=== PATIENT | male | born 1940 | race Caucasian/White ===

== ENCOUNTER 2023-04-11 15:49 | Inpatient (IN) | payer MEDICARE, BC ==
[~2023-04-11 15:49] MED LIST: Iopamidol 370 76% 100 ML VIAL ONE
[2023-04-11 17:52] LABS: #Basophils 0.1 10x3/uL (0.0-0.2); #Monocytes 0.7 10x3/uL (0.0-1.1); #Neutrophils 4.9 10x3/uL (1.5-8.4); %Basophils 1.1 % (0.0-2.0); %Eosinophils 0.7 % (0.0-6.0); %Lymphocytes 7.7 % (18.0-47.0); %Monocytes 10.9 % (0.0-10.0); %Neutrophils 78.9 % (40.0-75.0); Hematocrit 28.2 % (38.8-50.0); Hemoglobin 8.3 g/dL (13.5-17.5); Mean Corpuscular HGB CONC 29.4 g/dL (32.0-36.0); Mean Corpuscular Hemoglobin 32.7 pg (27.0-33.0); Mean Platelet Volume 9.7 fl (7.4-10.4); Platelet Count 256 10x3/uL (150-450); RBC Distribution Width 17.8 % (11.5-14.5); Red Blood Cell (RBC) Count 2.54 10x6/uL (4.32-5.72); White Blood Cell (WBC) Count 6.1 10x3/uL (3.5-10.5)
[2023-04-11 18:04] LABS: ALT (SGPT) 193 U/L (8-55); AST (SGOT) 147 U/L (5-34); Albumin 2.8 g/dL (3.4-4.8); Alkaline Phosphatase 151 U/L (40-110); Anion Gap 10 mmol/L (10-20); BUN (Urea Nitrogen) 12 mg/dL (8.4-25.7); Bilirubin, Total 0.2 mg/dL (0.2-1.2); Calc. Creatinine Clearance 0 mL/min (70-130); Calcium 8.3 mg/dL (7.8-10.44); Carbon Dioxide 26 mmol/L (23-31); Chloride 108 mmol/L (98-107); Estimated GFR 90; Globulin 1.8 g/dL (2.4-3.5); Glucose 102 mg/dL (83-110); Lipase 26 U/L (8-78); Potassium 4.1 mmol/L (3.5-5.1); Protein, Total 4.6 g/dL (5.8-8.1); Sodium 140 mmol/L (136-145)
[2023-04-11 18:10] LABS: Troponin I 0.012 ng/mL (< 0.028)
[2023-04-11 18:38] LABS: Bilirubin Neg (Negative); Blood, Urine 10 (Negative); Clarity Slightly Cloudy (Clear); Glucose, Urine (Dipstick) Normal (Negative); Ketone, Urine Negative (Negative); Leukocyte Negative (Negative); Nitrite Negative (Negative); Protein, Urine (Dipstick) 15 mg/dl (Neg-Trace); Specific Gravity, Urine 1.025 (1.005-1.030); Urobilinogen Normal mg/dL (Less than 2)
[2023-04-11 19:04] LABS: CAUTI Indications for Culture Pelvic or flank pain; RBC/HPF 0-3 HPF (0-3); Squamous Epithelial 0-3 HPF (0-3); WBC/HPF 0-3 HPF (0-3)
[2023-04-11 19:05] LABS: Bacteria/HPF None Seen HPF (None Seen)
[2023-04-11 19:06] LABS: Urine Culture Reflex No No
[2023-04-11] MEDS ORDERED: Ondansetron ODT 4 MG TAB PO PRN (19:57)
[2023-04-11] MEDS ORDERED: Acetaminophen 650 MG Suppository PR PRN (19:57)
[2023-04-11] MEDS ORDERED: Ondansetron PF 4 MG/2 ML Vial IVP PRN (19:57)
[2023-04-11] MEDS ORDERED: Acetaminophen 325 MG TAB PO PRN (19:57)
[2023-04-11] MEDS ORDERED: Furosemide 40 MG (4 mL) VIAL ONE (20:20)
[2023-04-11 20:49] LABS: Anion Gap 7 mmol/L (10-20); BUN (Urea Nitrogen) 11 mg/dL (8.4-25.7); Calc. Creatinine Clearance 0 mL/min (70-130); Calcium 8.2 mg/dL (7.8-10.44); Carbon Dioxide 27 mmol/L (23-31); Chloride 109 mmol/L (98-107); Estimated GFR 92; Glucose 97 mg/dL (83-110); Potassium 4.2 mmol/L (3.5-5.1); Sodium 139 mmol/L (136-145)
[2023-04-11 21:12] LABS: Thyroid Stimulating Hormone 2.2313 uIU/mL (0.35-4.94)
[2023-04-11] MEDS ORDERED: Famotidine 20 MG TAB ONE (22:24)
[2023-04-11] MEDS ORDERED: Enoxaparin 40 MG (0.4 mL) SYRINGE ONE (22:55)
[2023-04-11] MEDS ORDERED: Enoxaparin 40 MG (0.4 mL) SYRINGE SC SCH (23:00)
[2023-04-11] MEDS ORDERED: Albumin 25% 25 GM (100 mL) BOT IVPB SCH (23:00)
[2023-04-11] MEDS ORDERED: HYDROcodone/Acetaminophen 10/325 mg Tablet PO PRN (23:25)
[2023-04-11 23:58] LABS: Acetaminophen Less than 10 mcg/mL (10.0-30.0)
[2023-04-12 01:09] LABS: Hep C IgG Ab Non-Reactive S/CO (NonReactive); Hep C Index 0.09 S/CO (0-0.79)
[2023-04-12 04:17] LABS: #Eosinphils 0.1 10x3/uL (0.0-0.5); #Monocytes 0.5 10x3/uL (0.0-1.1); #Neutrophils 2.5 10x3/uL (1.5-8.4); %Basophils 1.2 % (0.0-2.0); %Eosinophils 1.7 % (0.0-6.0); %Lymphocytes 10.1 % (18.0-47.0); %Monocytes 14.2 % (0.0-10.0); %Neutrophils 72.5 % (40.0-75.0); Hematocrit 23.3 % (38.8-50.0); Hemoglobin 6.7 g/dL (13.5-17.5); Mean Corpuscular HGB CONC 28.8 g/dL (32.0-36.0); Mean Corpuscular Hemoglobin 32.1 pg (27.0-33.0); Mean Corpuscular Volume 111.5 fl (81.2-95.1); Mean Platelet Volume 10.1 fl (7.4-10.4); Platelet Count 206 10x3/uL (150-450); RBC Distribution Width 18.3 % (11.5-14.5); Red Blood Cell (RBC) Count 2.09 10x6/uL (4.32-5.72); White Blood Cell (WBC) Count 3.5 10x3/uL (3.5-10.5)
[2023-04-12 04:20] LABS: INR-International Normal Ratio 1.2; Prothrombin Time 12.4 sec (9.5-12.1)
[2023-04-12 04:28] LABS: ALT (SGPT) 122 U/L (8-55); AST (SGOT) 84 U/L (5-34); Albumin 2.7 g/dL (3.4-4.8); Alkaline Phosphatase 108 U/L (40-110); Anion Gap 10 mmol/L (10-20); BUN (Urea Nitrogen) 11 mg/dL (8.4-25.7); Bilirubin, Direct 0.2 mg/dL (0.1-0.3); Bilirubin, Total 0.3 mg/dL (0.2-1.2); Calc. Creatinine Clearance 0 mL/min (70-130); Calcium 8.1 mg/dL (7.8-10.44); Carbon Dioxide 27 mmol/L (23-31); Chloride 108 mmol/L (98-107); Estimated GFR 89; Globulin 1.4 g/dL (2.4-3.5); Glucose 95 mg/dL (83-110); Potassium 3.6 mmol/L (3.5-5.1); Protein, Total 4.1 g/dL (5.8-8.1); Sodium 141 mmol/L (136-145)
[2023-04-12] MEDS: Furosemide 20 MG (2 mL) VIAL SLOW IVP SCH (06:15)
[2023-04-12 07:08] LABS: Hypochromia MODERATE=16-30 cells (100X) (0-5/hpf)
[2023-04-12 07:09] LABS: Anisocytosis MODERATE=16-30 cells (100X) (0-5/hpf); Macrocytosis MODERATE=16-30 cells (100X) (0-5/hpf); Microcytosis SLIGHT = 6-15 cells (100X) (0-5/hpf); Polychromasia SLIGHT = 2-3 cells (100X) (0-2/hpf); Schistocytes SLIGHT = 2-5 cells (100X) (0-1/hpf)
[2023-04-12] MEDS ORDERED: Acetaminophen 325 MG TAB PO PRN (07:47)
[2023-04-12 08:25] LABS: Iron 307 ug/dL (65-175); Iron Binding Capacity, Total 174 mcg/dL (261-462); Magnesium 1.8 mg/dL (1.6-2.6)
[2023-04-12 08:27] LABS: Phosphorus 1.8 mg/dL (2.3-4.7)
[2023-04-12] MEDS ORDERED: Magnesium 2 GM/50 ML(in water) 2 GM in Premix 1 BAG IVPB SCH (08:30)
[2023-04-12] MEDS ORDERED: Famotidine 20 MG TAB PO SCH (09:00)
[2023-04-12] MEDS ORDERED: Aspirin 81 mg Enteric Coated Tablet PO SCH (09:00)
[2023-04-12] MEDS ORDERED: Enoxaparin 40 MG (0.4 mL) SYRINGE SC SCH (09:00)
[2023-04-12] MEDS ORDERED: Potassium Phosphate 30 MMOL in Sodium Chloride 0.9% 500 ML IVPB SCH (10:00)
[2023-04-12 10:21] VITALS: BMI 20.8
[2023-04-12] MEDS: Albumin 25% 25 GM (100 mL) BOT IVPB SCH ×2 (10:24→13:14)
[2023-04-12] MEDS: Folic Acid 1 MG TAB PO SCH (10:27)
[2023-04-12] MEDS ORDERED: Polyethylene Glycol 3350 17 GM Packet PO PRN (13:32)
[2023-04-12] MEDS ORDERED: HYDROcodone/Acetaminophen 5/325 mg Tablet PO PRN (13:32)
[2023-04-12] MEDS ORDERED: Folic Acid 1 MG TAB PO SCH (21:00)
[2023-04-12] MEDS ORDERED: Ammonium Lactate 12% Lotion 225 GM BOT TOP SCH (21:00)
[2023-04-12] MEDS ORDERED: Cyanocobalamin (Vitamin B-12) 1,000 MCG TAB PO SCH (21:00)
[2023-04-12] MEDS: Senokot S 8.6-50 MG TAB PO SCH (22:04)
[2023-04-12 23:49] LABS: Creatinine, Urine 135.06 mg/dL (63-166)
[2023-04-13] MEDS: Furosemide 20 MG (2 mL) VIAL SLOW IVP SCH (06:33)
[2023-04-13 06:50] LABS: #Basophils 0.1 10x3/uL (0.0-0.2); #Eosinphils 0.1 10x3/uL (0.0-0.5); #Monocytes 0.6 10x3/uL (0.0-1.1); #Neutrophils 4.9 10x3/uL (1.5-8.4); %Basophils 0.8 % (0.0-2.0); %Eosinophils 1.5 % (0.0-6.0); %Lymphocytes 5.9 % (18.0-47.0); %Monocytes 10.5 % (0.0-10.0); %Neutrophils 80.5 % (40.0-75.0); Hematocrit 29.9 % (38.8-50.0); Hemoglobin 9.3 g/dL (13.5-17.5); Mean Corpuscular HGB CONC 31.1 g/dL (32.0-36.0); Mean Corpuscular Hemoglobin 32.6 pg (27.0-33.0); Mean Corpuscular Volume 104.9 fl (81.2-95.1); Mean Platelet Volume 9.6 fl (7.4-10.4); Platelet Count 198 10x3/uL (150-450); RBC Distribution Width 21.5 % (11.5-14.5); Red Blood Cell (RBC) Count 2.85 10x6/uL (4.32-5.72); White Blood Cell (WBC) Count 6.1 10x3/uL (3.5-10.5)
[2023-04-13 06:58] LABS: INR-International Normal Ratio 1.1; Prothrombin Time 11.7 sec (9.5-12.1)
[2023-04-13 07:06] LABS: ALT (SGPT) 96 U/L (8-55); AST (SGOT) 61 U/L (5-34); Albumin 2.6 g/dL (3.4-4.8); Alkaline Phosphatase 128 U/L (40-110); Anion Gap 11 mmol/L (10-20); BUN (Urea Nitrogen) 11 mg/dL (8.4-25.7); Bilirubin, Total 0.6 mg/dL (0.2-1.2); Calc. Creatinine Clearance 55 mL/min (70-130); Calcium 7.9 mg/dL (7.8-10.44); Carbon Dioxide 25 mmol/L (23-31); Chloride 110 mmol/L (98-107); Estimated GFR 90; Globulin 1.7 g/dL (2.4-3.5); Glucose 92 mg/dL (83-110); Magnesium 1.9 mg/dL (1.6-2.6); Potassium 3.9 mmol/L (3.5-5.1); Protein, Total 4.3 g/dL (5.8-8.1); Sodium 142 mmol/L (136-145)
[2023-04-13 08:13] LABS: Hep B Surface AG-Rflx Sendout Negative (Negative); Hepatitis B Core Total Negative (Negative); Hepatitis B Surface AB-Sendout Non Reactive (.)
[2023-04-13] MEDS ORDERED: Magnesium 2 GM/50 ML(in water) 2 GM in Premix 1 BAG IVPB SCH (09:00)
[2023-04-13] MEDS: Folic Acid 1 MG TAB PO SCH (09:54)
[2023-04-13] MEDS: Senokot S 8.6-50 MG TAB PO SCH (09:54)
[2023-04-13 12:24] VITALS: BP 136/66; TEMP 98.1
[2023-04-14] MEDS ORDERED: Furosemide 20 MG TAB PO SCH (09:00)
== END 2023-04-13 14:00 | disposition home or self-care (01) | DRG 300 ==
LOC: CSHERS 15:49 → CSHERHOLD 20:06 → OBSVTOIN 04-12 07:38 → CSHTELE 04-12 08:42
PROVIDERS: ADMIT Family Medicine; ATTEND Internal Medicine
PROC: 30233J1 Transfusion of Nonautologous Serum Albumin into Peripheral Vein, Percutaneous Approach (ICD-10-PCS; 2023-04-11)
PROC: 30233N1 Transfusion of Nonautologous Red Blood Cells into Peripheral Vein, Percutaneous Approach (ICD-10-PCS; principal; 2023-04-12)
DX: I87.2 Venous insufficiency (chronic) (peripheral) (principal); E44.0 Moderate protein-calorie malnutrition; E87.70 Fluid overload, unspecified; I89.0 Lymphedema, not elsewhere classified; R74.01 Elevation of levels of liver transaminase levels; D50.9 Iron deficiency anemia, unspecified; I10 Essential (primary) hypertension; E78.5 Hyperlipidemia, unspecified; Z98.890 Other specified postprocedural states; Z87.891 Personal history of nicotine dependence; I25.10 Atherosclerotic heart disease of native coronary artery without angina pectoris; I25.2 Old myocardial infarction; Z95.0 Presence of cardiac pacemaker; Z88.2 Allergy status to sulfonamides; Z68.20 Body mass index [BMI] 20.0-20.9, adult
CPT/HCPCS: 36415; 36430; 71045; 74178; 76705; 80053; 80076; 80143; 81001; 82570; 82607; 82728; 83540; 83550; 83690; 83735; 83880; 84100; 84156; 84443; 84484; 85025; 85046; 85610; 86704; 86706; 86803; 86850; 86900; 86901; 87340; 93005; 93306; 93970; 96374; 80307; J1650; J1940; J2405; J3475; J7030; P9016; P9047

== ENCOUNTER 2023-05-21 10:39 | Outpatient (CLI) | payer MEDICARE, BC | END 2023-05-21 10:40 | disposition home or self-care (01) | LOC: CSHULT 10:39 | PROVIDERS: ATTEND Physician Assistant Medical | DX: R79.89 Other specified abnormal findings of blood chemistry (principal) | CPT/HCPCS: 76705 ==

== ENCOUNTER 2024-01-07 09:44 | Inpatient (IN) | payer MEDICARE, BC ==
[2024-01-07 10:27] LABS: #Basophils 0.04 10x3/uL (0.0-0.2); #Eosinphils 0.25 10x3/uL (0.0-0.5); #Monocytes 0.85 10x3/uL (0.0-1.1); %Basophils 0.6 % (0.0-2.0); %Lymphocytes 6.7 % (18.0-47.0); %Monocytes 13.5 % (0.0-10.0); %Neutrophils 74.6 % (40.0-75.0); Hematocrit 24.2 % (38.8-50.0); Hemoglobin 7.2 g/dL (13.5-17.5); Mean Corpuscular HGB CONC 29.8 g/dL (32.0-36.0); Mean Corpuscular Hemoglobin 29.4 pg (27.0-33.0); Mean Corpuscular Volume 98.8 fL (81.2-95.1); Mean Platelet Volume 10.5 fL (7.4-10.4); Platelet Count 314 10x3/uL (150-450); RBC Distribution Width 20.2 % (11.5-14.5); Red Blood Cell (RBC) Count 2.45 10x6/uL (4.32-5.72); White Blood Cell (WBC) Count 6.3 10x3/uL (3.5-10.5)
[2024-01-07 10:47] LABS: ALT (SGPT) 14 U/L (8-55); AST (SGOT) 35 U/L (5-34); Alkaline Phosphatase 80 U/L (40-110); Anion Gap 10 mmol/L (10-20); BUN (Urea Nitrogen) 13 mg/dL (8.4-25.7); Bilirubin, Total 0.3 mg/dL (0.2-1.2); Calc. Creatinine Clearance 0 mL/min (70-130); Calcium 7.9 mg/dL (7.8-10.44); Carbon Dioxide 29 mmol/L (23-31); Chloride 105 mmol/L (98-107); Estimated GFR 78; Globulin 3.4 g/dL (2.4-3.5); Glucose 109 mg/dL (83-110); Potassium 3.9 mmol/L (3.5-5.1); Protein, Total 5.4 g/dL (5.8-8.1); Sodium 140 mmol/L (136-145)
[2024-01-07 10:55] LABS: Troponin I Less than 0.010 ng/mL (< 0.028)
[2024-01-07] MEDS ORDERED: Furosemide 40 MG (4 mL) VIAL ONE (13:04)
[2024-01-07] MEDS ORDERED: Ondansetron PF 4 MG/2 ML Vial IVP PRN (15:34)
[2024-01-07] MEDS ORDERED: Acetaminophen 325 MG TAB PO PRN (15:34)
[2024-01-07] MEDS ORDERED: Senokot S 8.6-50 MG TAB PO PRN (15:34)
[2024-01-07] MEDS ORDERED: Calcium Carbonate 500 MG ChewTAB PO PRN (15:34)
[2024-01-07 15:47] LABS: Troponin I Less than 0.010 ng/mL (< 0.028)
[2024-01-07] MEDS ORDERED: Ipratropium/Albuterol 3 ML NEB EZPAP PRN (16:12)
[2024-01-07] MEDS: Furosemide 40 MG (4 mL) VIAL SLOW IVP SCH (18:26)
[2024-01-07] MEDS: Albumin 25% 25 GM (100 mL) BOT IVPB SCH (18:27)
[2024-01-07] MEDS: Rosuvastatin 20 MG TAB PO SCH (21:16)
[2024-01-08 04:03] LABS: #Basophils 0.03 10x3/uL (0.0-0.2); #Eosinphils 0.36 10x3/uL (0.0-0.5); #Monocytes 0.76 10x3/uL (0.0-1.1); #Neutrophils 3.97 10x3/uL (1.5-8.4); %Basophils 0.5 % (0.0-2.0); %Eosinophils 6.6 % (0.0-6.0); %Monocytes 13.9 % (0.0-10.0); %Neutrophils 72.5 % (40.0-75.0); Hemoglobin 6.5 g/dL (13.5-17.5); Mean Corpuscular HGB CONC 29.5 g/dL (32.0-36.0); Mean Corpuscular Hemoglobin 29.4 pg (27.0-33.0); Mean Corpuscular Volume 99.5 fL (81.2-95.1); Mean Platelet Volume 10.6 fL (7.4-10.4); Platelet Count 267 10x3/uL (150-450); RBC Distribution Width 20.7 % (11.5-14.5); Red Blood Cell (RBC) Count 2.21 10x6/uL (4.32-5.72); White Blood Cell (WBC) Count 5.5 10x3/uL (3.5-10.5)
[2024-01-08 04:22] LABS: ALT (SGPT) 16 U/L (8-55); AST (SGOT) 33 U/L (5-34); Albumin 2.3 g/dL (3.4-4.8); Alkaline Phosphatase 76 U/L (40-110); Anion Gap 11 mmol/L (10-20); BUN (Urea Nitrogen) 13 mg/dL (8.4-25.7); Bilirubin, Total 0.4 mg/dL (0.2-1.2); Calc. Creatinine Clearance 42 mL/min (70-130); Calcium 7.9 mg/dL (7.8-10.44); Carbon Dioxide 32 mmol/L (23-31); Chloride 102 mmol/L (98-107); Estimated GFR 78; Globulin 3.2 g/dL (2.4-3.5); Glucose 89 mg/dL (83-110); Magnesium 1.8 mg/dL (1.6-2.6); Potassium 3.4 mmol/L (3.5-5.1); Protein, Total 5.5 g/dL (5.8-8.1); Sodium 142 mmol/L (136-145)
[2024-01-08 05:12] VITALS: BMI 19.2
[2024-01-08] MEDS: Furosemide 40 MG (4 mL) VIAL SLOW IVP SCH (06:42)
[2024-01-08] MEDS: Albumin 25% 25 GM (100 mL) BOT IVPB SCH (06:42)
[2024-01-08] MEDS: Aspirin 81 mg Enteric Coated Tablet PO SCH (08:45)
[2024-01-08] MEDS ORDERED: Non-Formulary Medication 1 EACH (Glucosamine Hcl [Glucosamine Hcl] 1,500 MG Tablet) PO SCH (09:00)
[2024-01-08] MEDS ORDERED: Electrolyte Replacement Protocol 1 EACH FS SCH (09:45)
[2024-01-08] MEDS: Potassium Chloride 20 MEQ TAB PO SCH (09:48)
[2024-01-08] MEDS: Magnesium 2 GM/50 ML(in water) 2 GM in Premix 1 BAG IVPB SCH (11:58)
[2024-01-08 12:42] LABS: Iron 28 ug/dL (65-175); Iron Binding Capacity, Total 141 mcg/dL (261-462)
[2024-01-08 13:00] LABS: Ferritin 650.42 ng/mL (22-322)
[2024-01-08] MEDS: Sodium Ferric Gluconate 125 MG in Sodium Chloride 0.9% 100 ML IVPB SCH (16:42)
[2024-01-09 04:06] LABS: #Basophils 0.04 10x3/uL (0.0-0.2); #Eosinphils 0.39 10x3/uL (0.0-0.5); #Monocytes 0.99 10x3/uL (0.0-1.1); #Neutrophils 4.15 10x3/uL (1.5-8.4); %Basophils 0.7 % (0.0-2.0); %Eosinophils 6.5 % (0.0-6.0); %Lymphocytes 6.2 % (18.0-47.0); %Monocytes 16.6 % (0.0-10.0); %Neutrophils 69.7 % (40.0-75.0); Hematocrit 26.9 % (38.8-50.0); Hemoglobin 8.2 g/dL (13.5-17.5); Mean Corpuscular HGB CONC 30.5 g/dL (32.0-36.0); Mean Corpuscular Hemoglobin 30.1 pg (27.0-33.0); Mean Corpuscular Volume 98.9 fL (81.2-95.1); Mean Platelet Volume 10.5 fL (7.4-10.4); Platelet Count 238 10x3/uL (150-450); RBC Distribution Width 20.3 % (11.5-14.5); Red Blood Cell (RBC) Count 2.72 10x6/uL (4.32-5.72)
[2024-01-09 04:15] LABS: Anion Gap 10 mmol/L (10-20); BUN (Urea Nitrogen) 12 mg/dL (8.4-25.7); Calc. Creatinine Clearance 38 mL/min (70-130); Calcium 7.9 mg/dL (7.8-10.44); Carbon Dioxide 33 mmol/L (23-31); Chloride 102 mmol/L (98-107); Estimated GFR 75; Glucose 90 mg/dL (83-110); Magnesium 2.3 mg/dL (1.6-2.6); Phosphorus 1.9 mg/dL (2.3-4.7); Potassium 3.6 mmol/L (3.5-5.1); Sodium 141 mmol/L (136-145)
[2024-01-09 04:34] LABS: Free T4 (Free Thyroxine) 0.85 ng/dL (0.70-1.48)
[2024-01-09] MEDS ORDERED: Megestrol Acetate 800 MG/20 ML UDCUP PO SCH (09:00)
[2024-01-09] MEDS: Megestrol Acetate 400 MG/10 ML UDCUP PO SCH (09:21)
[2024-01-09] MEDS: PHOS-NAK 1 PKT PACK PO SCH (09:22)
[2024-01-09] MEDS: Ferrous Sulfate 325 MG TAB PO SCH (09:23)
[2024-01-09 16:46] VITALS: BP 121/64; TEMP 97.4
[2024-01-10] MEDS ORDERED: Furosemide 40 MG TAB PO SCH (07:30)
== END 2024-01-09 17:30 | DRG 291 ==
LOC: CSHERS 09:44 → SUATTDRO 09:44 → CSHTELE 15:40 → OBSVTOIN 16:00
PROVIDERS: ADMIT Internal Medicine; ATTEND Family Medicine
PROC: 30233N1 Transfusion of Nonautologous Red Blood Cells into Peripheral Vein, Percutaneous Approach (ICD-10-PCS; principal; 2024-01-08)
PROC: 30233J1 Transfusion of Nonautologous Serum Albumin into Peripheral Vein, Percutaneous Approach (ICD-10-PCS; 2024-01-08)
DX: I13.0 Hypertensive heart and chronic kidney disease with heart failure and stage 1 through stage 4 chronic kidney disease, or unspecified chronic kidney disease (principal); I50.33 Acute on chronic diastolic (congestive) heart failure; J96.01 Acute respiratory failure with hypoxia; E44.0 Moderate protein-calorie malnutrition; R64 Cachexia; Z68.1 Body mass index [BMI] 19.9 or less, adult; D64.9 Anemia, unspecified; E78.5 Hyperlipidemia, unspecified; I25.10 Atherosclerotic heart disease of native coronary artery without angina pectoris; M41.9 Scoliosis, unspecified; Z66 Do not resuscitate; N18.9 Chronic kidney disease, unspecified; Z95.0 Presence of cardiac pacemaker; Z79.82 Long term (current) use of aspirin; Z79.899 Other long term (current) drug therapy
CPT/HCPCS: 36415; 36416; 36430; 71045; 80048; 80053; 82274; 82607; 82728; 83540; 83550; 83605; 83735; 83880; 84100; 84439; 84443; 84481; 84484; 85025; 85046; 86850; 86870; 86900; 86901; 86922; 93005; 94760; 94762; 96374; J1940; J2916; J3475; P9016; P9047

== ENCOUNTER 2024-03-30 12:03 | Emergency (ER) | payer MEDICARE, BC ==
[2024-03-30] MEDS ORDERED: Ondansetron PF 4 MG/2 ML Vial ONE (13:14)
[2024-03-30] MEDS ORDERED: Morphine 4 MG/ML VIAL ONE ×2 (13:14→18:24)
[2024-03-30 13:42] LABS: #Basophils 0.04 10x3/uL (0.0-0.2); #Eosinophils 0.02 10x3/uL (0.0-0.5); #Monocytes 0.95 10x3/uL (0.0-1.1); #Neutrophils 5.61 10x3/uL (1.5-8.4); %Basophils 0.6 % (0.0-2.0); %Eosinophils 0.3 % (0.0-6.0); %Lymphocytes 5.1 % (18.0-47.0); %Monocytes 13.6 % (0.0-10.0); Hemoglobin 7.4 g/dL (13.5-17.5); Mean Corpuscular HGB CONC 29.6 g/dL (32.0-36.0); Mean Platelet Volume 9.9 fL (7.4-10.4); Platelet Count 315 10x3/uL (150-450); RBC Distribution Width 17.4 % (11.5-14.5); Red Blood Cell (RBC) Count 2.55 10x6/uL (4.32-5.72)
[2024-03-30 13:45] LABS: INR-International Normal Ratio 1.1; PTT 26.1 sec (22.0-33.0); Prothrombin Time 12.1 sec (9.5-12.1)
[2024-03-30 13:47] LABS: ALT (SGPT) 25 U/L (8-55); AST (SGOT) 34 U/L (5-34); Albumin 1.6 g/dL (3.4-4.8); Alkaline Phosphatase 91 U/L (40-110); Anion Gap 9 mmol/L (10-20); BUN (Urea Nitrogen) 16 mg/dL (8.4-25.7); Bilirubin, Total 0.3 mg/dL (0.2-1.2); Calc. Creatinine Clearance 0 mL/min (70-130); Calcium 7.7 mg/dL (7.8-10.44); Carbon Dioxide 27 mmol/L (23-31); Chloride 107 mmol/L (98-107); Estimated GFR 88; Globulin 3.6 g/dL (2.4-3.5); Glucose 97 mg/dL (83-110); Potassium 4.8 mmol/L (3.5-5.1); Protein, Total 5.2 g/dL (5.8-8.1); Sodium 138 mmol/L (136-145)
[2024-03-30 13:53] LABS: Troponin I Less than 0.010 ng/mL (< 0.028)
[2024-03-30] MEDS ORDERED: Pantoprazole 40 MG VIAL ONE (14:05)
[2024-03-30] MEDS ORDERED: Furosemide 40 MG (4 mL) VIAL ONE (14:05)
== END 2024-03-30 18:40 | disposition short-term general hospital (02) ==
LOC: CSHERS 12:03
DX: S72.002A Fracture of unspecified part of neck of left femur, initial encounter for closed fracture (principal); D50.0 Iron deficiency anemia secondary to blood loss (chronic); I11.0 Hypertensive heart disease with heart failure; I50.9 Heart failure, unspecified; X58.XXXA Exposure to other specified factors, initial encounter
CPT/HCPCS: 71045; 72170; 80053; 83880; 84484; 85025; 85610; 85730; 86850; 86870; 86900; 86901; 93005; 93010; 96374; 96375; 96376; J1940; J2272; J2405; J2470

== ENCOUNTER 2024-12-22 10:00 | Inpatient (IN) | payer MEDICARE, BC ==
[2024-12-22 11:14] LABS: #Basophils 0.03 10x3/uL (0.0-0.2); #Eosinophils Less than 0.03 10x3/uL (0.0-0.5); #Monocytes 0.65 10x3/uL (0.0-1.1); #Neutrophils 4.14 10x3/uL (1.5-8.4); %Basophils 0.6 % (0.0-2.0); %Eosinophils 0.4 % (0.0-6.0); %Lymphocytes 7.2 % (18.0-47.0); %Monocytes 12.4 % (0.0-10.0); %Neutrophils 78.8 % (40.0-75.0); Hematocrit 27.3 % (38.8-50.0); Hemoglobin 7.9 g/dL (13.5-17.5); Mean Corpuscular Hemoglobin 31.7 pg (27.0-33.0); Mean Corpuscular Volume 109.6 fL (81.2-95.1); Platelet Count 284 10x3/uL (150-450); Red Blood Cell (RBC) Count 2.49 10x6/uL (4.32-5.72); White Blood Cell (WBC) Count 5.25 10x3/uL (3.5-10.5)
[2024-12-22 11:26] LABS: ALT (SGPT) 32 U/L (Less than 45); AST (SGOT) 29 U/L (11-34); Albumin 1.5 g/dL (3.1-4.5); Alkaline Phosphatase 150 U/L (40-110); Anion Gap 5 mmol/L (10-20); BUN (Urea Nitrogen) 17 mg/dL (8.4-25.7); Bilirubin, Total 0.4 mg/dL (0.3-1.2); Calc. Creatinine Clearance 0 mL/min (70-130); Carbon Dioxide 31 mmol/L (23-31); Chloride 107 mmol/L (98-107); Globulin 3.5 g/dL (2.4-3.5); Glucose 91 mg/dL (83-110); Potassium 4.1 mmol/L (3.5-5.1); Sodium 139 mmol/L (136-145)
[2024-12-22 11:30] LABS: Troponin I 0.011 ng/mL (< 0.028)
[2024-12-22 11:49] LABS: Calcium 6.9 mg/dL (7.8-10.44)
[2024-12-22] MEDS ORDERED: Calcium Gluc 4.6 MEQ/10 ML (100 MG/ML) ONE (12:15)
[2024-12-22] MEDS ORDERED: Ondansetron PF 4 MG/2 ML Vial IVP PRN (15:23)
[2024-12-22] MEDS ORDERED: Acetaminophen 325 MG TAB PO PRN (15:23)
[2024-12-22] MEDS ORDERED: Electrolyte Replacement Protocol 1 EACH FS SCH (15:30)
[2024-12-22 16:48] LABS: Magnesium 1.6 mg/dL (1.6-2.6)
[2024-12-22] MEDS: PHOS-NAK 1 PKT PACK PO SCH (17:18)
[2024-12-22] MEDS: Albumin 25% 25 GM (100 mL) BOT IVPB SCH (17:18)
[2024-12-22] MEDS: Magnesium 2 GM/50 ML(in water) 2 GM in Premix 1 BAG IVPB SCH (17:52)
[2024-12-22] MEDS: Furosemide 40 MG (4 mL) VIAL SLOW IVP SCH (18:33)
[2024-12-22] MEDS: Cholecalciferol 1,000 UNITS (25 MCG) TAB PO SCH (19:50)
[2024-12-22] MEDS: Rosuvastatin 20 MG TAB PO SCH (19:50)
[2024-12-23 05:58] LABS: ALT (SGPT) 22 U/L (Less than 45); AST (SGOT) 27 U/L (11-34); Albumin 2.5 g/dL (3.1-4.5); Alkaline Phosphatase 112 U/L (40-110); Anion Gap 7 mmol/L (10-20); BUN (Urea Nitrogen) 19 mg/dL (8.4-25.7); Bilirubin, Total 0.5 mg/dL (0.3-1.2); Calc. Creatinine Clearance 45 mL/min (70-130); Calcium 7.5 mg/dL (7.8-10.44); Carbon Dioxide 33 mmol/L (23-31); Chloride 105 mmol/L (98-107); Globulin 2.7 g/dL (2.4-3.5); Glucose 89 mg/dL (83-110); Magnesium 2.1 mg/dL (1.6-2.6); Potassium 3.7 mmol/L (3.5-5.1); Sodium 141 mmol/L (136-145)
[2024-12-23 06:16] LABS: Hematocrit 23.2 % (38.8-50.0); Hemoglobin 6.7 g/dL (13.5-17.5); Mean Corpuscular Hemoglobin 31.6 pg (27.0-33.0); Mean Corpuscular Volume 109.4 fL (81.2-95.1); Platelet Count 251 10x3/uL (150-450); Red Blood Cell (RBC) Count 2.12 10x6/uL (4.32-5.72); White Blood Cell (WBC) Count 5.72 10x3/uL (3.5-10.5)
[2024-12-23 07:12] LABS: Anisocytosis MODERATE=16-30 cells (100X) (0-5/hpf); Macrocytosis MODERATE=16-30 cells (100X) (0-5/hpf); Microcytosis SLIGHT = 6-15 cells (100X) (0-5/hpf); Ovalocytes SLIGHT = 2-5 cells (100X) (0-1/hpf); Poikilocytosis SLIGHT = 6-15 cells (100X) (0-5/hpf); Polychromasia SLIGHT = 2-3 cells (100X) (0-2/hpf); Spherocytes SLIGHT = 1-5 cells (100X) (None Seen)
[2024-12-23 07:13] LABS: Platelet Adequacy Comment Appears Adequate
[2024-12-23 07:14] LABS: #Basophils Less than 0.03 10x3/uL (0.0-0.2); #Eosinophils 0.08 10x3/uL (0.0-0.5); #Monocytes 0.20 10x3/uL (0.0-1.1); #Neutrophils 5.21 10x3/uL (1.5-8.4); %Basophils 0.2 % (0.0-2.0); %Eosinophils 1.4 % (0.0-6.0); %Lymphocytes 3.3 % (18.0-47.0); %Monocytes 3.5 % (0.0-10.0); %Neutrophils 91.1 % (40.0-75.0)
[2024-12-23 08:03] LABS: Hematocrit 22.9 % (38.8-50.0); Hemoglobin 6.7 g/dL (13.5-17.5)
[2024-12-23] MEDS: Furosemide 40 MG (4 mL) VIAL ONE (08:37)
[2024-12-23] MEDS: PHOS-NAK 1 PKT PACK PO SCH (09:02)
[2024-12-23] MEDS: Cyanocobalamin (Vitamin B-12) 1,000 MCG TAB PO SCH (09:02)
[2024-12-23] MEDS: Metoprolol Succinate XL 25 MG ER.TAB PO SCH (09:02)
[2024-12-23] MEDS: Aspirin 81 mg Enteric Coated Tablet PO SCH (09:02)
[2024-12-23] MEDS: Ferrous Sulfate 325 MG TAB PO SCH (09:02)
[2024-12-23] MEDS: Furosemide 40 MG (4 mL) VIAL SLOW IVP SCH (09:03)
[2024-12-23 09:24] LABS: ALV-art Gradient 153.950 mmHg (0-20); Actual Bicarbonate (HCO3a) 28.7 mEq/L (22-28); Analyzer IN Cardio CS ICU; Base Excess (BEa) 5.6 mEq/L (-2.0 to +3.0); CO2 Tension 35.4 mmHg (35.0-45.0); Calcium, Ionized (arterial) 1.05 mmol/L (1.12-1.30); Hematocrit-ABG 22 % (42.0-52.0); Hemoglobin (Hb) 7.4 g/dL (14.0-18.0); O2 Tension (PaO2), arterial 87.0 mmHg (> 60.0); Potassium - ABG Lab 3.58 mmol/L (3.70-5.30); Puncture Site Right Radial artery; pH, Arterial 7.527 (7.35-7.45)
[2024-12-23 10:26] LABS: Influenza A by NAA Not Detected (NotDetected); Influenza B by NAA Not Detected (NotDetected); RSV by NAA Not Detected (NotDetected); SARS-CoV-2 NAA Rapid Test Not Detected (NotDetected)
[2024-12-23] MEDS: Pantoprazole 40 MG DR.TAB PO SCH (10:56)
[2024-12-23] MEDS: Melatonin 3 MG TAB PO PRN (20:40)
[2024-12-24 05:15] LABS: #Basophils 0.03 10x3/uL (0.0-0.2); #Eosinophils 0.05 10x3/uL (0.0-0.5); #Monocytes 0.63 10x3/uL (0.0-1.1); #Neutrophils 5.57 10x3/uL (1.5-8.4); %Basophils 0.4 % (0.0-2.0); %Eosinophils 0.7 % (0.0-6.0); %Lymphocytes 5.1 % (18.0-47.0); %Monocytes 9.4 % (0.0-10.0); %Neutrophils 83.7 % (40.0-75.0); Hematocrit 25.3 % (38.8-50.0); Hemoglobin 7.5 g/dL (13.5-17.5); Mean Corpuscular Hemoglobin 31.8 pg (27.0-33.0); Mean Corpuscular Volume 107.2 fL (81.2-95.1); Platelet Count 207 10x3/uL (150-450); Red Blood Cell (RBC) Count 2.36 10x6/uL (4.32-5.72); White Blood Cell (WBC) Count 6.67 10x3/uL (3.5-10.5)
[2024-12-24 05:31] LABS: ALT (SGPT) 16 U/L (Less than 45); AST (SGOT) 21 U/L (11-34); Albumin 2.4 g/dL (3.1-4.5); Alkaline Phosphatase 89 U/L (40-110); Anion Gap 8 mmol/L (10-20); BUN (Urea Nitrogen) 22 mg/dL (8.4-25.7); Bilirubin, Total 0.6 mg/dL (0.3-1.2); Calc. Creatinine Clearance 55 mL/min (70-130); Calcium 7.4 mg/dL (7.8-10.44); Carbon Dioxide 30 mmol/L (23-31); Chloride 107 mmol/L (98-107); Critical Call Chemistry CCU.MVD@0530; Globulin 2.4 g/dL (2.4-3.5); Glucose 78 mg/dL (83-110); Iron 25 ug/dL (65-175); Magnesium 2.0 mg/dL (1.6-2.6); Potassium 3.3 mmol/L (3.5-5.1); Sodium 142 mmol/L (136-145)
[2024-12-24 05:41] LABS: Ferritin 709.54 ng/mL (22-322)
[2024-12-24] MEDS ORDERED: PHOS-NAK 1 PKT PACK PO SCH ×2 (06:15→18:00)
[2024-12-24] MEDS: Magnesium 2 GM/50 ML(in water) 2 GM in Premix 1 BAG IVPB SCH (06:44)
[2024-12-24] MEDS: Potassium Phosphate 22 MMOL in Sodium Chloride 0.9% 250 ML 250 ML IVPB SCH (08:59)
[2024-12-24] MEDS: Pantoprazole 40 MG DR.TAB PO SCH (09:02)
[2024-12-24 14:17] LABS: Vitamin B12 893.0 pg/mL (211-911)
[2024-12-24 15:53] VITALS: BMI 19.8
[2024-12-24 17:33] LABS: Potassium 4.7 mmol/L (3.5-5.1)
[2024-12-24] MEDS: Potassium Phosphate 15 MMOL in Sodium Chloride 0.9% 250 ML 250 ML IVPB SCH (19:49)
[2024-12-24] MEDS: PHOS-NAK 1 PKT PACK PO SCH (20:14)
[2024-12-24] MEDS: Sodium Ferric Gluconate 250 MG, Admixture Fee 1 EACH in Sodium Chloride 0.9% 250 ML 250 ML IVPB SCH (20:16)
[2024-12-25 03:36] LABS: Hematocrit 27.1 % (38.8-50.0); Hemoglobin 8.1 g/dL (13.5-17.5); Mean Corpuscular Hemoglobin 32.1 pg (27.0-33.0); Mean Corpuscular Volume 107.5 fL (81.2-95.1); Platelet Count 237 10x3/uL (150-450); Red Blood Cell (RBC) Count 2.52 10x6/uL (4.32-5.72); White Blood Cell (WBC) Count 6.88 10x3/uL (3.5-10.5)
[2024-12-25 03:37] LABS: #Basophils 0.04 10x3/uL (0.0-0.2); #Eosinophils 0.10 10x3/uL (0.0-0.5); #Monocytes 0.69 10x3/uL (0.0-1.1); #Neutrophils 5.63 10x3/uL (1.5-8.4); %Basophils 0.6 % (0.0-2.0); %Eosinophils 1.5 % (0.0-6.0); %Lymphocytes 5.7 % (18.0-47.0); %Monocytes 10.0 % (0.0-10.0); %Neutrophils 81.8 % (40.0-75.0)
[2024-12-25 03:46] LABS: Anion Gap 5 mmol/L (10-20); BUN (Urea Nitrogen) 27 mg/dL (8.4-25.7); Calc. Creatinine Clearance 58 mL/min (70-130); Calcium 7.3 mg/dL (7.8-10.44); Carbon Dioxide 31 mmol/L (23-31); Chloride 108 mmol/L (98-107); Glucose 101 mg/dL (83-110); Magnesium 2.1 mg/dL (1.6-2.6); Potassium 4.3 mmol/L (3.5-5.1); Sodium 140 mmol/L (136-145)
[2024-12-25 05:04] VITALS: BMI 19.9
[2024-12-25] MEDS: Sodium Ferric Gluconate 250 MG, Admixture Fee 1 EACH in Sodium Chloride 0.9% 250 ML 250 ML IVPB SCH (09:02)
[2024-12-25 12:59] LABS: Potassium 4.6 mmol/L (3.5-5.1)
[2024-12-26 03:18] LABS: #Basophils 0.04 10x3/uL (0.0-0.2); #Eosinophils 0.07 10x3/uL (0.0-0.5); #Monocytes 0.65 10x3/uL (0.0-1.1); #Neutrophils 4.93 10x3/uL (1.5-8.4); %Basophils 0.6 % (0.0-2.0); %Eosinophils 1.1 % (0.0-6.0); %Lymphocytes 7.5 % (18.0-47.0); %Monocytes 10.5 % (0.0-10.0); %Neutrophils 80.0 % (40.0-75.0); Hematocrit 27.2 % (38.8-50.0); Hemoglobin 8.3 g/dL (13.5-17.5); Mean Corpuscular Hemoglobin 32.4 pg (27.0-33.0); Mean Corpuscular Volume 106.3 fL (81.2-95.1); Platelet Count 260 10x3/uL (150-450); Red Blood Cell (RBC) Count 2.56 10x6/uL (4.32-5.72); White Blood Cell (WBC) Count 6.17 10x3/uL (3.5-10.5)
[2024-12-26 03:59] LABS: ALT (SGPT) 24 U/L (Less than 45); AST (SGOT) 35 U/L (11-34); Albumin 2.1 g/dL (3.1-4.5); Alkaline Phosphatase 103 U/L (40-110); Anion Gap 7 mmol/L (10-20); BUN (Urea Nitrogen) 23 mg/dL (8.4-25.7); Bilirubin, Total 0.5 mg/dL (0.3-1.2); Calc. Creatinine Clearance 61 mL/min (70-130); Calcium 7.1 mg/dL (7.8-10.44); Carbon Dioxide 26 mmol/L (23-31); Chloride 112 mmol/L (98-107); Globulin 2.8 g/dL (2.4-3.5); Glucose 85 mg/dL (83-110); Magnesium 1.9 mg/dL (1.6-2.6); Potassium 4.0 mmol/L (3.5-5.1); Sodium 141 mmol/L (136-145)
[2024-12-26] MEDS: Magnesium 2 GM/50 ML(in water) 2 GM in Premix 1 BAG IVPB SCH (08:17)
[2024-12-26 14:10] VITALS: BP 123/60; TEMP 97.6
== END 2024-12-26 15:54 | disposition home health service (06) | DRG 291 ==
LOC: CSHERS 10:00 → CSHTELE 14:09 → CSHICU 12-23 08:19 → OBSVTOIN 12-23 08:39 → CSHTELE 12-26 11:15
PROVIDERS: ADMIT Family Medicine; ATTEND Family Medicine
PROC: 4A03351 Measurement of Arterial Flow, Peripheral, Percutaneous Approach (ICD-10-PCS; principal; 2024-12-23)
PROC: 30233J1 Transfusion of Nonautologous Serum Albumin into Peripheral Vein, Percutaneous Approach (ICD-10-PCS; 2024-12-23)
PROC: 30233N1 Transfusion of Nonautologous Red Blood Cells into Peripheral Vein, Percutaneous Approach (ICD-10-PCS; 2024-12-23)
DX: I13.0 Hypertensive heart and chronic kidney disease with heart failure and stage 1 through stage 4 chronic kidney disease, or unspecified chronic kidney disease (principal); I50.31 Acute diastolic (congestive) heart failure; J96.21 Acute and chronic respiratory failure with hypoxia; E46 Unspecified protein-calorie malnutrition; Z68.1 Body mass index [BMI] 19.9 or less, adult; D62 Acute posthemorrhagic anemia; I25.10 Atherosclerotic heart disease of native coronary artery without angina pectoris; E88.09 Other disorders of plasma-protein metabolism, not elsewhere classified; N18.2 Chronic kidney disease, stage 2 (mild); I49.5 Sick sinus syndrome; E78.00 Pure hypercholesterolemia, unspecified; E83.51 Hypocalcemia; J44.9 Chronic obstructive pulmonary disease, unspecified; Z95.0 Presence of cardiac pacemaker; Z98.890 Other specified postprocedural states; Z79.82 Long term (current) use of aspirin; Z79.899 Other long term (current) drug therapy
CPT/HCPCS: 36415; 36430; 36600; 71045; 80048; 80053; 82607; 82728; 82805; 83540; 83735; 83880; 84100; 84484; 85025; 85046; 86850; 86870; 86900; 86901; 86922; 87637; 93005; 93010; 93306; 94760; 94762; 96365; 96375; 96376; 97139; G0378; J0612; J1940; J2916; J3475; J7050; P9016; P9047

== ENCOUNTER 2025-01-07 10:31 | Emergency (ER) | payer MEDICARE, BC ==
[2025-01-07 11:37] LABS: Hematocrit 23.5 % (38.8-50.0); Hemoglobin 6.7 g/dL (13.5-17.5); Mean Corpuscular Hemoglobin 35.1 pg (27.0-33.0); Mean Corpuscular Volume 123.0 fL (81.2-95.1); Platelet Count 232 10x3/uL (150-450); Red Blood Cell (RBC) Count 1.91 10x6/uL (4.32-5.72); White Blood Cell (WBC) Count 4.02 10x3/uL (3.5-10.5)
[2025-01-07 11:54] LABS: ALT (SGPT) 51 U/L (Less than 45); AST (SGOT) 55 U/L (11-34); Albumin 2.2 g/dL (3.1-4.5); Alkaline Phosphatase 139 U/L (40-110); Anion Gap 6 mmol/L (10-20); BUN (Urea Nitrogen) 17 mg/dL (8.4-25.7); Bilirubin, Total 0.3 mg/dL (0.3-1.2); Calc. Creatinine Clearance 0 mL/min (70-130); Calcium 7.6 mg/dL (7.8-10.44); Carbon Dioxide 29 mmol/L (23-31); Chloride 110 mmol/L (98-107); Globulin 3.3 g/dL (2.4-3.5); Glucose 92 mg/dL (83-110); Potassium 4.5 mmol/L (3.5-5.1); Sodium 140 mmol/L (136-145)
[2025-01-07 12:15] LABS: #Basophils 0.06 10x3/uL (0.0-0.2); #Eosinophils 0.05 10x3/uL (0.0-0.5); #Monocytes 0.38 10x3/uL (0.0-1.1); #Neutrophils 3.23 10x3/uL (1.5-8.4); %Basophils 1.5 % (0.0-2.0); %Eosinophils 1.2 % (0.0-6.0); %Lymphocytes 7.0 % (18.0-47.0); %Monocytes 9.5 % (0.0-10.0); %Neutrophils 80.3 % (40.0-75.0)
[2025-01-07 13:05] LABS: Anisocytosis MODERATE=16-30 cells (100X) (0-5/hpf); Macrocytosis MODERATE=16-30 cells (100X) (0-5/hpf); Platelet Adequacy Comment Appears Adequate; Polychromasia SLIGHT = 2-3 cells (100X) (0-2/hpf)
== END 2025-01-07 19:09 | disposition home or self-care (01) ==
LOC: CSHERS 10:31
DX: D64.9 Anemia, unspecified (principal); I10 Essential (primary) hypertension
CPT/HCPCS: 36430; 80053; 85025; 86850; 86900; 86901; 86902; 86920; 86922; 99284; P9016; 36415